=== PATIENT | male | born 1950 | race Caucasian/White ===

== ENCOUNTER 2018-11-17 09:00 | Outpatient (RCR) | payer MEDICARE, OTHER ==
[2016-01-30 08:25] VITALS: BP 177/92
[~2018-11-17 09:00] MED LIST: COZAAR25 M1; GLUCOPHAGE; MELOXICAM15 MG; PRAVASTATIN SOD10 MG
== END 2018-11-30 | disposition home or self-care (01) ==
LOC: PT
DX: Z47.1 Aftercare following joint replacement surgery (principal); Z96.642 Presence of left artificial hip joint; Z86.12 Personal history of poliomyelitis
CPT/HCPCS: G8978-GP; G8979-GP

== ENCOUNTER → 2019-08-03 | Outpatient (CLI) | payer MEDICARE, OTHER ==
[2016-01-30 08:25] VITALS: BP 177/92
== END ==
LOC: RAD 09:34
DX: R94.5 Abnormal results of liver function studies (principal); K76.0 Fatty (change of) liver, not elsewhere classified